=== PATIENT | female | born 1940 | race Hispanic/Latino ===

== ENCOUNTER → 2024-02-13 | Outpatient (CLI) | payer MEDICARE ==
[2024-02-13] MEDS: REGADENOSON 0.4 MG/5 ML PF SYG IVP ONE (14:47)
== END | disposition home or self-care (01) ==
LOC: SHCH 08:17 → EDUNIT# 08:50
PROVIDERS: ATTEND Internal Medicine Cardiovascular Disease
DX: I48.0 Paroxysmal atrial fibrillation (principal); I48.92 Unspecified atrial flutter
CPT/HCPCS: 78452; 93017; J2785; A9500 ×2